=== PATIENT | male | born 1980 | race Caucasian/White ===

== ENCOUNTER 2022-10-29 07:46 | Emergency (ER) | payer BC ==
[~2022-10-29] VITALS: Ht 167.6 cm; Wt 56.7 kg
[~2022-10-29 07:46] MED LIST: Folic Acid/Vitamin B Comp W-C PO; THIA100T91 PO
[2022-10-29 10:57] VITALS: BP 130/76; PULSE 80; RESP 18; O2SAT 99
== END 2022-10-29 11:13 | disposition home or self-care (01) ==
LOC: EDH 07:46
DX: S51.811A Laceration without foreign body of right forearm, initial encounter (principal); F17.200 Nicotine dependence, unspecified, uncomplicated; Z79.899 Other long term (current) drug therapy; Z98.890 Other specified postprocedural states; X58.XXXA Exposure to other specified factors, initial encounter; Y93.89 Activity, other specified; Y92.89 Other specified places as the place of occurrence of the external cause; Y99.8 Other external cause status
CPT/HCPCS: 12002; 12041; 12042; 73090

== ENCOUNTER 2023-08-22 13:05 | Emergency (ER) | payer BC ==
[~2023-08-22] VITALS: Ht 170.2 cm; Wt 59.0 kg
[2023-08-22] MEDS: ACETAMINOPHEN 500 MG TABLET PO ONE (14:38)
[2023-08-22 14:43] LABS: BASOPHILS # (AUTO) 0.02 K/uL (0.00-0.20); BASOPHILS % (AUTO) 0.2 % (0.0-5.0); EOSINOPHILS # (AUTO) 0.02 K/uL (0.00-0.70); EOSINOPHILS % (AUTO) 0.2 % (0.0-8.0); HEMATOCRIT 43.2 % (42-54); IMMATURE GRANULOCYTE ABSOLUTE 0.08 K/uL (0-1); LYMPHOCYTES # (AUTO) 0.6 K/uL (1.0-4.8); LYMPHOCYTES % (AUTO) 7.3 % (21.0-51.0); MEAN CORPUSCULAR HEMOGLOBIN 36.2 pg (27.0-33.0); MEAN CORPUSCULAR HGB CONC 35.2 g/dL (32.0-36.0); MEAN CORPUSCULAR VOLUME 102.9 fL (79-99); MONOCYTES # (AUTO) 0.4 K/uL (0.1-1.0); MONOCYTES % (AUTO) 4.5 % (3.0-13.0); NEUTROPHILS # (AUTO) 7.3 K/uL (1.8-7.7); NEUTROPHILS % (AUTO) 86.8 % (40.0-77.0); PLATELET COUNT (AUTO) 140 K/uL (130-400); RED CELL DISTRIBUTION WIDTH 12.4 % (11.0-15.5); WHITE BLOOD COUNT (AUTO) 8.4 K/uL (4.8-10.8)
[2023-08-22 14:58] LABS: POTASSIUM 3.6 mmol/L (3.5-5.1)
[2023-08-22 15:03] LABS: ALBUMIN 3.4 g/dL (3.5-5.0); BILIRUBIN,TOTAL 1.8 mg/dL (0.2-1.0); TOTAL PROTEIN, SERUM 7.4 g/dL (6.0-8.3)
[2023-08-22] MEDS: OCTYL 2-CYANOACRYLATE 1 EACH TP SCH (15:38)
[2023-08-22 16:24] LABS: APPEARANCE,URINE CLEAR (CLEAR); BILIRUBIN,URINE NEGATIVE (NEGATIVE); COLOR,URINE DARK-YELLOW (YELLOW); GLUCOSE, URINE (UA) NEGATIVE (NEGATIVE); KETONES,URINE 10 mg/dL (NEGATIVE); LEUKOCYTE ESTERASE ,URINE NEGATIVE Leu/uL (NEGATIVE); NITRATE,URINE NEGATIVE (NEGATIVE); OCCULT BLOOD,URINE NEGATIVE (NEGATIVE); PH,URINE 7.5 (5.0-8.0); PROTEIN,URINE 50 mg/dL (NEGATIVE)
[2023-08-22 16:27] LABS: ADD UA MICROSCOPIC YES
[2023-08-22 16:30] LABS: MUCUS,URINE RARE LPF (None Seen); SQUAMOUS EPITHELIAL CELL,UR RARE /HPF (0-2); WBC,URINE 0-1 /HPF (0-1)
[2023-08-22 16:35] LABS: AMPHET/METH SCREEN,URINE NEGATIVE (NEGATIVE); BARBITURATE SCREEN, URINE NEGATIVE (NEGATIVE); BENZODIAZEPINES SCREEN,URINE NEGATIVE (NEGATIVE); CANNABINOID SCREEN,URINE NEGATIVE (NEGATIVE); COCAINE SCREEN,URINE NEGATIVE (NEGATIVE); OPIATE SCREEN,URINE NEGATIVE (NEGATIVE); PHENCYCLIDINE SCREEN,URINE NEGATIVE (NEGATIVE)
[2023-08-22 16:58] VITALS: BP 124/87; PULSE 73; RESP 17; O2SAT 97
[2023-08-22] MEDS ORDERED: IBUP-2077 PO (17:01)
== END 2023-08-22 17:10 | disposition home or self-care (01) ==
LOC: EDH 13:05
DX: S01.112A Laceration without foreign body of left eyelid and periocular area, initial encounter (principal); S09.90XA Unspecified injury of head, initial encounter; R55 Syncope and collapse; R73.9 Hyperglycemia, unspecified; E86.0 Dehydration; M54.6 Pain in thoracic spine; W18.30XA Fall on same level, unspecified, initial encounter; Y93.89 Activity, other specified; Y92.89 Other specified places as the place of occurrence of the external cause; Y99.8 Other external cause status
CPT/HCPCS: 12011; 36415; 70450; 72070; 72125; 80053; 80305; 81001; 84484; 85025; 93005

== ENCOUNTER 2023-08-22 19:28 | Inpatient (IN) | payer BC ==
[~2023-08-22] VITALS: Ht 170.2 cm; Wt 58.0 kg
[~2023-08-22 19:28] MED LIST changes: +IBUP-2077 PO
[2023-08-22] MEDS: THIAMINE HCL 100 MG/ML 2ML VIAL IVP ONE (21:01)
[2023-08-22] MEDS: LORAZEPAM 2 MG/ML 1 ML VIAL IVP PRN (21:02)
[2023-08-22 21:12] LABS: CREATINE KINASE, TOTAL 378 U/L (21-232)
[2023-08-22 21:14] LABS: ALCOHOL, BLOOD < 3 mg/dL (0-10)
[2023-08-22] MEDS: 0.9%NACL 1000ML 1,000 ML IV ONE (21:18)
[2023-08-22] MEDS: LEVETIRACETAM 500 MG/5 ML SD VIAL IV SCH (21:40)
[2023-08-22 22:30] LABS: BASOPHILS # (AUTO) 0.02 K/uL (0.00-0.20); BASOPHILS % (AUTO) 0.2 % (0.0-5.0); EOSINOPHILS # (AUTO) 0.01 K/uL (0.00-0.70); EOSINOPHILS % (AUTO) 0.1 % (0.0-8.0); HEMATOCRIT 42.5 % (42-54); IMMATURE GRANULOCYTE ABSOLUTE 0.06 K/uL (0-1); LYMPHOCYTES % (AUTO) 10.3 % (21.0-51.0); MEAN CORPUSCULAR HEMOGLOBIN 36.5 pg (27.0-33.0); MEAN CORPUSCULAR HGB CONC 34.4 g/dL (32.0-36.0); MEAN CORPUSCULAR VOLUME 106.3 fL (79-99); MONOCYTES % (AUTO) 10.1 % (3.0-13.0); NEUTROPHILS # (AUTO) 7.4 K/uL (1.8-7.7); NEUTROPHILS % (AUTO) 78.7 % (40.0-77.0); PLATELET COUNT (AUTO) 122 K/uL (130-400); RED CELL DISTRIBUTION WIDTH 12.7 % (11.0-15.5); WHITE BLOOD COUNT (AUTO) 9.5 K/uL (4.8-10.8)
[2023-08-22] MEDS ORDERED: LORAZEPAM 2 MG/ML 1 ML VIAL IVP PRN (22:30)
[2023-08-22] MEDS ORDERED: PHARMACY COMMUNICATION MISC PRN (22:30)
[2023-08-22] MEDS ORDERED: ONDANSETRON 4MG INJ IV PRN (22:30)
[2023-08-22] MEDS ORDERED: ACETAMINOPHEN 325 MG TAB PO PRN ×2 (22:30)
[2023-08-22] MEDS ORDERED: MORPHINE 4 MG SYG IV PRN (22:30)
[2023-08-22 22:45] LABS: ALBUMIN 3.3 g/dL (3.5-5.0); BILIRUBIN,TOTAL 1.4 mg/dL (0.2-1.0); CREATININE 1.5 mg/dL (0.5-1.3); POTASSIUM 3.4 mmol/L (3.5-5.1); TOTAL PROTEIN, SERUM 7.2 g/dL (6.0-8.3)
[2023-08-22] MEDS: THIAMINE HCL 100 MG, FOLIC ACID 1 MG, M.V.I. IV [ADULT] 10 ML in 0.9%NACL 1000ML 1,000 ML IV SCH (23:23)
[2023-08-22] MEDS: CHLORDIAZEPOXIDE HCL 25 MG CAP PO ONE (23:30)
[2023-08-22] MEDS ORDERED: MAGNESIUM 2GM PREMIX 50ML 50 ML IV PRN (23:30)
[2023-08-22] MEDS ORDERED: POTASSIUM CHLORIDE 10% ELIXIR 20 MEQ/15 ML UDCUP PO PRN (23:30)
[2023-08-22] MEDS ORDERED: POTASSIUM CHLORIDE 20MEQ/100ML 100 ML IV PRN (23:30)
[2023-08-23] VITALS (8 sets, daily range): BP systolic 135–158; BP diastolic 80–104; PULSE 70–98; RESP 18–20; O2SAT 100
[2023-08-23 06:19] LABS: BASOPHILS # (AUTO) 0.01 K/uL (0.00-0.20); BASOPHILS % (AUTO) 0.2 % (0.0-5.0); EOSINOPHILS # (AUTO) 0.06 K/uL (0.00-0.70); HEMATOCRIT 38.4 % (42-54); IMMATURE GRANULOCYTE ABSOLUTE 0.03 K/uL (0-1); LYMPHOCYTES # (AUTO) 0.8 K/uL (1.0-4.8); LYMPHOCYTES % (AUTO) 14.1 % (21.0-51.0); MEAN CORPUSCULAR HEMOGLOBIN 35.5 pg (27.0-33.0); MEAN CORPUSCULAR HGB CONC 34.1 g/dL (32.0-36.0); MEAN CORPUSCULAR VOLUME 104.1 fL (79-99); MONOCYTES # (AUTO) 0.5 K/uL (0.1-1.0); MONOCYTES % (AUTO) 8.4 % (3.0-13.0); NEUTROPHILS # (AUTO) 4.4 K/uL (1.8-7.7); NEUTROPHILS % (AUTO) 75.8 % (40.0-77.0); PLATELET COUNT (AUTO) 96 K/uL (130-400); RED BLOOD CELL COUNT(AUTO) 3.69 MIL/uL (4.50-6.20); RED CELL DISTRIBUTION WIDTH 12.7 % (11.0-15.5); WHITE BLOOD COUNT (AUTO) 5.8 K/uL (4.8-10.8)
[2023-08-23 06:49] LABS: MAGNESIUM 2.3 mg/dL (1.80-2.40); PHOSPHORUS 2.8 mg/dL (2.5-4.9); POTASSIUM 3.2 mmol/L (3.5-5.1)
[2023-08-23] MEDS: FAMOTIDINE 20MG TAB PO SCH (08:25)
[2023-08-23] MEDS: ENOXAPARIN SODIUM 40 MG/0.4 ML SYRINGE SQ SCH (08:25)
[2023-08-23] MEDS: KCL 20 MEQ ERTAB PO PRN (08:26)
[2023-08-23] MEDS ORDERED: IBUPROFEN 800 MG TAB PO PRN (09:30)
[2023-08-23] MEDS ORDERED: COMPOUND IV MISC 1 EACH IVSOLN MISC PRN (11:30)
[2023-08-23] MEDS: LEVETIRACETAM 500 MG in 0.9%NACL 100ML 100 ML IV SCH (20:39)
[2023-08-23] MEDS: THIAMINE HCL 100 MG TABLET PO SCH (20:40)
[2023-08-23] MEDS ORDERED: FOLIC ACID PO SCH (21:00)
[2023-08-23] MEDS ORDERED: VITAMIN B COMP W C PO SCH (21:00)
[2023-08-24] MEDS ORDERED: VITAMIN B COMPLEX 1 CAPSULE PO SCH (09:00)
== END 2023-08-23 23:50 | disposition left against medical advice (07) | DRG 101 ==
LOC: EDH 19:28 → EDHIP 22:10 → 3AH 08-23 00:43
PROVIDERS: ADMIT Internal Medicine; ATTEND Internal Medicine
DX: G40.509 Epileptic seizures related to external causes, not intractable, without status epilepticus (principal); F10.239 Alcohol dependence with withdrawal, unspecified; E87.1 Hypo-osmolality and hyponatremia; F05 Delirium due to known physiological condition; M48.54XA Collapsed vertebra, not elsewhere classified, thoracic region, initial encounter for fracture; M62.82 Rhabdomyolysis; N17.9 Acute kidney failure, unspecified; E86.0 Dehydration; E87.6 Hypokalemia; F17.210 Nicotine dependence, cigarettes, uncomplicated; I10 Essential (primary) hypertension; Z79.899 Other long term (current) drug therapy; Z53.29 Procedure and treatment not carried out because of patient's decision for other reasons
CPT/HCPCS: 36415; 70450; 70553; 71045; 80048; 80053; 82550; 83735; 84100; 85025; 95819; 96375; G0378; J1650; J1953; J2060; J3411; J3490; J7030